=== PATIENT | male | born 1950 | race Caucasian/White ===

== ENCOUNTER 2016-06-03 23:23 | Emergency (ER) | payer MEDICARE ==
[2016-06-03 23:40] VITALS: BP 118/65
[2016-06-04] MEDS ORDERED: HYDR-971 PO
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
[2016-06-04] MEDS ORDERED: DIPHTH,PERTUSS(ACELL),TET TOX 0.5 ML DISP.SYRIN. VAX IM ONE (00:15)
[2016-06-04] MEDS ORDERED: HYDROCODONE/APAP 5/325MG TABLET. PO ONE (00:15)
[2016-06-04] MEDS ORDERED: NEOMY/BACITR/POLYMYXIN OINT PACKET. TP ONE (00:15)
== END 2016-06-04 00:29 | disposition home or self-care (01) ==
LOC: ER 23:23
DX: T23.032A Burn of unspecified degree of multiple left fingers (nail), not including thumb, initial encounter (principal); T23.031A Burn of unspecified degree of multiple right fingers (nail), not including thumb, initial encounter; T31.0 Burns involving less than 10% of body surface; X08.8XXA Exposure to other specified smoke, fire and flames, initial encounter; Y93.89 Activity, other specified; Y92.89 Other specified places as the place of occurrence of the external cause; Y99.8 Other external cause status
CPT/HCPCS: 90471; 90715; 99283-25

== ENCOUNTER → 2016-08-15 | Outpatient (CLI) | payer MEDICARE ==
[~2016-08-15] MED LIST: HYDR-971 PO
--- NOTE | 2016-08-17 13:14 | PDOC4 ---
PROCEDURE Procedure POLYSOMNOGRAPHY REPORT Type of Study: Diagnostic Date of Study: 08/15/2016 Referring Physician: Tereza WEIR BMI: 33 Batson sleepiness scale: 8 SLEEP PARAMETERS Sleep latency: 64 min REM latency: None Total bed time: 405 min Total sleep time : 37 min Sleep Efficiency: 9% SLEEP STAGES: Stage I: 80% Stage II: 20% SWS: 0% REM: 0% EKG NSR Average HR 68/min Arrythmias: None OXIMETRY DATA Mean saturations: 94% Minimum saturations: 91% Percent saturations <90: 0% PLMS PLM Index: 0/hr PLM Arousal Index: 0/hr RESPIRATORY DATA Central Apneas:0 Obstructive Apneas: 7 Mixed: 50 Hypopneas: 0 Total AHI: 92/hr Supine AHI:106/hr REM AHI: 0/hr IMPRESSION 1. Severe SHERI 2. NO PLM 3. No significant hypoxia 4. Severe sleep onset and sleep maintenance Insomnia RECOMMENDATIONS 1. Patient should return to sleep lab for CPAP titration 2. Weight loss is advised 3. Follow up on insomnia ,if it persist despite use of CPAP 4. Avoid PIPE WELDER depressants 5. Caution regarding driving until sleep apnea is effectively treated. HARRY CERDA MD Aug 17, 2016 13:14
== END | disposition home or self-care (01) ==
LOC: SLPLAB 18:04
PROVIDERS: ATTEND Physician Assistant
DX: G47.30 Sleep apnea, unspecified (principal)
CPT/HCPCS: 95810

== ENCOUNTER → 2016-09-27 | Outpatient (CLI) | payer MEDICARE ==
[~2016-09-27] MED LIST changes: +ZOLPIDEM 5 MG TABLET. PO ONE
--- NOTE | 2016-09-28 17:39 | SLEEP ---
DATE OF STUDY: 09/27/2016 SLEEP STUDY ATTENDING PHYSICIAN: Dr. Jose Spencer. The patient is a 66-year-old male who weighs 278 pounds with a BMI of 33. The patient had a previous sleep study at [facility] and was found to have severe SHERI with an AHI of 92 per hour. The patient returned to [place] sleep lab for CPAP titration. He also had a poor sleep efficiency on his previous sleep study. During his night study, the patient spent 407 minutes in bed and slept only 76 minutes with a sleep efficiency of 19%. Sleep latency was 7 minutes with an absence of REM sleep. Overall, sleep architecture showed increased stage 1 sleep and reduced stage 2 sleep. Absent slow wave and absent REM sleep. The patient was started on CPAP, but he was very uncomfortable with all the different interfaces. He also had difficult time in initiating sleep. Different pressures starting from 5 cm of water were dried up to 12 cm of water, even BiPAP at 15/10 was applied. However, the patient had no therapeutic pressure due to his poor quality of sleep and intolerance to CPAP/BiPAP. The patient's AHI was 120 per hour at CPAP at 12 cm of water and 42 per hour CPAP at 9 cm of water. Optimum CPAP pressure was not achieved. EKG monitoring revealed normal sinus rhythm, average heart rate was 59 beats per minute. PLMS were not seen. IMPRESSION: 1. Severe sleep apnea diagnosed by previous sleep study.Optimum CPAP pressure not achieved. 2. No clinically significant PLMS. 3. No clinically significant nocturnal hypoxia. RECOMMENDATIONS: 1. The patient continued to have poor sleep efficiency and also was intolerant to CPAP. As a result, the optimum CPAP or BiPAP pressure was not achieved. If patient is willing to try CPAP in future, then I would recommend placing him on auto CPAP at a minimum pressure of 12 cm of water and a maximum pressure of 20 cm of water and the patient can be followed up with a download information in 4-6 weeks. Alternately oral appliance can also be considered. 2. Weight loss is strongly advised. 3. Avoid [employer] depressants. 4. Caution regarding driving until symptoms of sleep apnea resolve with the above recommendations. HARRY CERDA MD DR: MERLE/sally JOB#: [id number] / [id number] MARCELO
== END | disposition home or self-care (01) ==
LOC: RT 18:21
PROVIDERS: ATTEND Physician Assistant
DX: G47.33 Obstructive sleep apnea (adult) (pediatric) (principal)
CPT/HCPCS: 95811